=== PATIENT | male | born 1945 | race American Indian/Alaskan Native ===

== ENCOUNTER 2021-08-24 12:43 | Inpatient (IN) | payer MEDICARE ==
[2021-08-24] MEDS ORDERED: SODIUM CHLORIDE 0.9% 1000 ML 1,000 ML IV ONE (13:32)
--- NOTE | 2021-08-24 13:32 | Emergency Department Report ---
ED General Adult HPI - General Stated complaint: ABNORMAL LABS/PNEUMONIA Time Seen by Provider: 08/24/21 12:57 - History of Present Illness Initial comments: Patient was sent in from senior care by EMS for pneumonia. He had had diarrhea with leukocytosis. There was concern for possible sepsis. Patient cannot provide any cogent history. He was confused. He knew that he had renal disease. He knew that he was on dialysis, but could not tell me when he was last dialyzed. He did not know if he had been given antibiotics or not. He states that he was just told to come here. Based on review of the senior care notes, patient was diagnosed with a "mild right upper lobe pneumonia." This is based on a chest x-ray from August 23. He had outpatient labs that demonstrated a BUN of 36 and a creatinine of 6.5 with a normal potassium of 3.4. He is white count was 23.7. Again, there was no documentation that antibiotics had been administered. Patient's only complaint was of diarrhea for 5 days. He states that they were supposed to give him something for diarrhea but they had not given him anything for diarrhea. - Related Data Home Medications Medication Instructions Recorded Confirmed Last Taken Apixaban [Eliquis] 5 mg PO BID 08/24/21 08/24/21 Unknown Melatonin [Melatonin 3MG TAB] 3 mg PO QPM 08/24/21 08/24/21 Unknown Sertraline [Zoloft] 25 mg PO QDAY 08/24/21 08/24/21 Unknown Simvastatin 10 mg PO QPM 08/24/21 08/24/21 Unknown amLODIPine [Norvasc] 10 mg PO DAILY 08/24/21 08/24/21 Unknown carvediloL [Coreg] 25 mg PO BID 08/24/21 08/24/21 Unknown hydrALAZINE [Apresoline TAB] 100 mg PO TID 08/24/21 08/24/21 Unknown oxyCODONE [roxiCODONE] 5 mg PO Q8HR PRN 08/24/21 08/24/21 Unknown sevelamer HCL [Renagel] 800 mg PO TIDWM 08/24/21 08/24/21 Unknown Allergies Allergy/AdvReac Type Severity Reaction Status Date / Time Penicillins Allergy Unknown Unknown Unverified 08/24/21 15:48 ED Review of Systems ROS: Stated complaint: ABNORMAL LABS/PNEUMONIA Other details as noted in HPI Comment: All other systems reviewed and negative (It should be noted the patient is confused. Whether his review of systems is intact or not is not known.) Constitutional: denies: fever Eyes: denies: eye pain ENT: denies: throat pain Respiratory: denies: cough Cardiovascular: denies: chest pain Endocrine: denies: unexplained weight loss Gastrointestinal: denies: abdominal pain Genitourinary: denies: dysuria Musculoskeletal: denies: back pain Skin: denies: rash Neurological: denies: headache Hematological/Lymphatic: denies: easy bruising ED Past Medical Hx - Past Medical History Previous Medical History?: Yes Additional medical history: ESRD, senior care patient, diabetes, recent diagnosis of pneumonia, chronic congestive heart failure - Family History Family history: no significant - Medications Home Medications: Home Medications Medication Instructions Recorded Confirmed Last Taken Type Apixaban [Eliquis] 5 mg PO BID 08/24/21 08/24/21 Unknown History Melatonin [Melatonin 3MG TAB] 3 mg PO QPM 08/24/21 08/24/21 Unknown History Sertraline [Zoloft] 25 mg PO QDAY 08/24/21 08/24/21 Unknown History Simvastatin 10 mg PO QPM 08/24/21 08/24/21 Unknown History amLODIPine [Norvasc] 10 mg PO DAILY 08/24/21 08/24/21 Unknown History carvediloL [Coreg] 25 mg PO BID 08/24/21 08/24/21 Unknown History hydrALAZINE [Apresoline TAB] 100 mg PO TID 08/24/21 08/24/21 Unknown History oxyCODONE [roxiCODONE] 5 mg PO Q8HR PRN 08/24/21 08/24/21 Unknown History sevelamer HCL [Renagel] 800 mg PO TIDWM 08/24/21 08/24/21 Unknown History ED Physical Exam - General Limitations: Altered Mental Status ( confused), Other ( pulse ox was noted and normal. Is not hypoxic.) General appearance: alert, in no apparent distress - Head Head exam: Present: atraumatic, normocephalic, normal inspection - Eye Eye exam: Present: normal appearance, EOMI. Absent: scleral icterus - ENT ENT exam: Present: mucous membranes dry, normal external ear exam - Neck Neck exam: Present: normal inspection. Absent: meningismus - Respiratory Respiratory exam: Present: normal lung sounds bilaterally. Absent: respiratory distress - Cardiovascular Cardiovascular Exam: Present: regular rate, normal rhythm - GI/Abdominal GI/Abdominal exam: Present: soft. Absent: distended, tenderness - Extremities Exam Extremities exam: Present: normal capillary refill. Absent: pedal edema - Back Exam Back exam: Absent: CVA tenderness (R), CVA tenderness (L) - Neurological Exam Neurological exam: Present: alert, altered, reflexes normal. Absent: motor sensory deficit - Psychiatric Psychiatric exam: Present: normal affect, normal mood - Skin Skin exam: Present: warm, dry ED Course Vital Signs 08/24/21 08/24/21 08/24/21 13:06 13:16 13:25 Temperature 99 F Pulse Rate 69 Respiratory 16 11 L Rate Blood Pressure 106/49 O2 Sat by Pulse 99 95 Oximetry 08/24/21 08/24/21 08/24/21 13:30 13:46 14:00 Temperature Pulse Rate 67 75 69 Respiratory 11 L 16 13 Rate Blood Pressure 113/55 103/56 101/55 O2 Sat by Pulse 94 Oximetry 08/24/21 08/24/21 08/24/21 14:02 14:16 14:30 Temperature Pulse Rate 71 68 Respiratory 18 13 12 Rate Blood Pressure 104/58 104/52 O2 Sat by Pulse 96 Oximetry 08/24/21 08/24/21 08/24/21 14:46 15:00 15:16 Temperature Pulse Rate 69 72 68 Respiratory 12 7 L 14 Rate Blood Pressure 103/54 108/54 103/53 O2 Sat by Pulse Oximetry 08/24/21 08/24/21 08/24/21 15:30 15:46 16:00 Temperature Pulse Rate 67 67 67 Respiratory 9 L 12 12 Rate Blood Pressure 106/53 113/51 107/52 O2 Sat by Pulse Oximetry - Reevaluation(s) Reevaluation #1: 08/24/21 13:32 IV ordered. ED Medical Decision Making - Lab Data Result diagrams: 08/24/21 13:55 08/24/21 13:55 - Medical Decision Making Patient presents from a senior care with a diagnosis of pneumonia and leukocytosis. He has a features that would qualify for SIRS. He does not have hypotension. He has chronic renal failure but does not have acute kidney injury suggestive of severe sepsis or septic shock. Broad-spectrum antibiotics have been ordered. We will proceed with admission. Critical Care Time: No Critical care attestation.: If time is entered above; I have spent that time in minutes in the direct care of this critically ill patient, excluding procedure time. ED Disposition Clinical Impression: HCAP (healthcare-associated pneumonia), SIRS (systemic inflammatory response syndrome) Disposition: 09 ADMITTED INPATIENT Is pt being admited?: Yes Condition: Stable Instructions: Bacterial Pneumonia (ED)
[2021-08-24 14:51] LABS: Hematocrit 28.6 % (35.5-45.6); Hemoglobin 9.3 gm/dl (11.8-15.2); Mean Corpuscular HGB Conc 32 % (32-34); Mean Corpuscular Volume 75 fl (84-94); Platelet Count 281 K/mm3 (140-440); Red Blood Count 3.79 M/mm3 (3.65-5.03); Red Cell Distribution Width 18.8 % (13.2-15.2)
[2021-08-24 15:01] LABS: Calcium 8.6 mg/dL (8.4-10.2)
[2021-08-24] MEDS ORDERED: SODIUM CHLORIDE 0.9% 500 ML 500 ML IV ONE (16:09)
--- NOTE | 2021-08-24 16:34 | History and Physical Report ---
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 with HTN, ESRD on HD(T,R,Sa), DM, HLD, Vascular Dementia, Cerebral Atherosclerosis, CHF, currently on Therapeutic anticoagulation with Eliquis pres ents to ED for evaluation. Patient has diminished cognition with concomitant tangential thinking and is unable to provide detailed history. Patient is provided by EMS staff, ED staff, as well as the patient daughter who was made available by telephone for interview. As per daughter the patient was found to have pneumonia and was unable to undergo dialysis today. EMS was notified and the patient was transported to [facility] for further care and evaluation of the aforementioned symptoms. The patient was seen and evaluated in the emergency department. All lab and imaging studies reviewed. The patient was found to have pneumonia complicated by sepsis, end-stage renal disease in need of urgent dialysis. Patient was initiated on sepsis protocol in the emergency department. Nephrology team consulted in ED for dialysis. No further history is obtainable. Patient has diminished cognition but has a positive gag reflex and is able to protect his airway without difficulty. No prior admission for review. All medication listed at time of admission has been reconciled. Advanced care planning conducted in ED. Past History Past Medical History: diabetes, heart failure, hypertension, other (See HPI) Past Surgical History: Other (Dialysis access) Social history: single Family history: diabetes, hypertension Medications and Allergies Allergies Allergy/AdvReac Type Severity Reaction Status Date / Time Penicillins Allergy Unknown Unknown Unverified 08/24/21 15:48 Home Medications Medication Instructions Recorded Confirmed Last Taken Type Apixaban [Eliquis] 5 mg PO BID 08/24/21 08/24/21 Unknown History Melatonin [Melatonin 3MG TAB] 3 mg PO QPM 08/24/21 08/24/21 Unknown History Sertraline [Zoloft] 25 mg PO QDAY 08/24/21 08/24/21 Unknown History Simvastatin 10 mg PO QPM 08/24/21 08/24/21 Unknown History amLODIPine [Norvasc] 10 mg PO DAILY 08/24/21 08/24/21 Unknown History carvediloL [Coreg] 25 mg PO BID 08/24/21 08/24/21 Unknown History hydrALAZINE [Apresoline TAB] 100 mg PO TID 08/24/21 08/24/21 Unknown History oxyCODONE [roxiCODONE] 5 mg PO Q8HR PRN 08/24/21 08/24/21 Unknown History sevelamer HCL [Renagel] 800 mg PO TIDWM 08/24/21 08/24/21 Unknown History Active Meds: Active Medications Vancomycin HCl 1,750 mg/ (Sodium Chloride) 535 mls @ 333 mls/hr IV ONCE ONE; Protocol Stop: 08/24/21 18:45 Sodium Chloride (Nacl 0.9% 500 Ml) 500 mls @ 999 mls/hr IV ONCE ONE Stop: 08/24/21 16:39 Review of Systems ROS unobtainable: due to mental status Exam - Constitutional Vitals: Temp Pulse Resp BP Pulse Ox 99 F 67 12 107/52 96 08/24/21 13:25 08/24/21 16:00 08/24/21 16:00 08/24/21 16:00 08/24/21 14:02 General appearance: Present: mild distress - EENT Eyes: Present: PERRL ENT: clear oral mucosa, hearing decreased - Neck Neck: Present: supple, normal ROM - Respiratory Respiratory effort: normal Respiratory: bilateral: CTA - Cardiovascular Heart Sounds: Present: S1 & S2. Absent: rub, click - Extremities Extremities: pulses symmetrical, No edema Peripheral Pulses: abnormal (Capillary refill greater than 3.5 seconds) - Abdominal General gastrointestinal: Present: soft, non-tender, non-distended, normal bowel sounds Male genitourinary: Present: normal - Integumentary Integumentary: Present: clear, dry - Musculoskeletal Musculoskeletal: generalized weakness - Psychiatric Psychiatric: no appropriate mood/affect, no intact judgment & insight, no memory intact - Neurologic Neurologic: CNII-XII intact, no focal deficits, moves all extremities, no gait normal Results - Labs CBC & Chem 7: 08/24/21 13:55 08/24/21 13:55 Labs: Abnormal lab results 08/24/21 08/24/21 Range/Units 13:55 13:55 WBC 30.4 H (4.5-11.0) K/mm3 Hgb 9.3 L (11.8-15.2) gm/dl Hct 28.6 L (35.5-45.6) % MCV 75 L (84-94) fl MCH 25 L (28-32) pg RDW 18.8 H (13.2-15.2) % Sodium 130 L (137-145) mmol/L Potassium 3.2 L (3.6-5.0) mmol/L Chloride 89.9 L (98-107) mmol/L BUN 47 H (9-20) mg/dL Creatinine 8.6 H (0.8-1.3) mg/dL Glucose 202 H (75-100) mg/dL Assessment and Plan - Patient Problems (1) Sepsis Current Visit: Yes Status: Acute Plan to address problem: Sepsis protocol: CBC, CMP, chest x-ray reviewed, urinalysis, IV antibiotic therapy, monitor urine output every shift, serial lactic acid level, maintain mean arterial pressure greater than or equal to 65, blood culture. (2) HCAP (healthcare-associated pneumonia) Current Visit: No Status: Acute Plan to address problem: Pneumonia protocol: Chest x-ray, CBC, CMP, IV antibiotic therapy, supplemental oxygen, pulse oximetry, nebulizer therapy (3) End stage renal disease Current Visit: Yes Status: Acute Plan to address problem: Nephrology team consulted in ED, dialysis as per renal team. Avoid nephrotoxic agents. (4) Hypertension Current Visit: Yes Status: Acute Qualifiers: Hypertension type: primary hypertension Qualified Code(s): I10 - Essential (primary) hypertension Plan to address problem: Monitor blood pressure every shift, hold antihypertensive therapy at this time. (5) Hyperlipidemia Current Visit: Yes Status: Acute Qualifiers: Hyperlipidemia type: mixed hyperlipidemia Qualified Code(s): E78.2 - Mixed hyperlipidemia Plan to address problem: Statin therapy, supportive care, (6) DVT prophylaxis Current Visit: Yes Status: Acute Plan to address problem: SCD to bilateral lower extremities while in bed, continue therapeutic anticoagulation (7) Advance care planning Current Visit: Yes Status: Acute Plan to address problem: Disease education conducted, care plan discussed, diagnoses discussed, patient is full code, patient daughter acknowledges understanding and agreement with care plan, +30 minutes.
[2021-08-24] MEDS ORDERED: ACETAMINOPHEN 325 MG TAB PO PRN ×2 (16:35→17:23)
[2021-08-24] MEDS ORDERED: HYDROmorphone 1 MG/1 ML INJ IV PRN ×2 (16:35→17:27)
--- NOTE | 2021-08-24 16:56 | XRay Report ---
CHEST 1 VIEW 08/24/2021 4:12 PM INDICATION / CLINICAL INFORMATION: sepsis. COMPARISON: None available. FINDINGS: SUPPORT DEVICES: None. HEART / MEDIASTINUM: No significant abnormality. LUNGS / PLEURA: No significant pulmonary or pleural abnormality. No pneumothorax. ADDITIONAL FINDINGS: No significant additional findings. IMPRESSION: No acute abnormality. Signer Name: Alphonse Rodriguez MD Signed: 08/24/2021 4:52 PM Workstation Name: [id number]
[2021-08-24] MEDS ORDERED: SEVELAMER HCL 800 MG PO SCH (17:00)
[2021-08-24] MEDS ORDERED: VANCOMYCIN PHARMACY TO DOSE IV SCH (17:00)
[2021-08-24] MEDS ORDERED: SODIUM CHLORIDE 0.9% 1000 ML IV SOLN IV ONE (17:00)
[2021-08-24] MEDS ORDERED: VANCOMYCIN 1,750 MG in SODIUM CHLORIDE 0.9% 500 ML 500 ML IV ONE (17:09)
[2021-08-24] MEDS ORDERED: ALBUTEROL 2.5 MG/3 ML NEBU IH PRN (17:23)
[2021-08-24] MEDS ORDERED: oxyCODONE /ACETAMINOPHEN 5-325MG TAB PO PRN (17:23)
[2021-08-24] MEDS ORDERED: ONDANSETRON 4 MG/2 ML INJ IV PRN (17:23)
[2021-08-24] MEDS ORDERED: NON-FORMULARY EACH (Melatonin [Melatonin 3mg Tab] 3 MG Tablet) PO SCH (18:00)
[2021-08-24] MEDS ORDERED: NON-FORMULARY EACH (Simvastatin [Simvastatin] 10 MG Tablet) PO SCH (18:00)
[2021-08-24 18:56] LABS: Anisocytosis 1+; Total Cells Counted 100
[2021-08-24 18:57] LABS: Hypochromasia 1+; Large Platelets Few; Platelet Estimate Consistent w Auto
[2021-08-24] MEDS ORDERED: NON-FORMULARY EACH (Apixaban 5 MG Tablet) PO SCH (22:00)
[2021-08-24] MEDS: PRAVASTATIN 20 MG TAB PO SCH (23:37)
[2021-08-24] MEDS: APIXABAN 5 MG TAB PO SCH (23:38)
[2021-08-25] MEDS: INSULIN LISPRO 100 UNIT/ML SUB-Q SCH ×5 (01:15→22:55)
[2021-08-25] MEDS ORDERED: INSULIN LISPRO 100 UNIT/ML SUB-Q SCH (07:30)
[2021-08-25] MEDS ORDERED: SEVELAMER HCL 800 MG PO SCH (08:00)
[2021-08-25] MEDS: SEVELAMER CARBONATE 800 MG TAB PO SCH ×3 (08:01→17:22)
--- NOTE | 2021-08-25 08:35 | Event Note ---
Date: 08/25/21 Hemodialysis consent obtained from patient.
--- NOTE | 2021-08-25 08:35 | Consultation ---
History of Present Illness - Reason for Consult Consult date: 08/25/21 end stage renal disease - History of Present Illness The patient is a 75 YO male with history significant for DM, HTN, HLD, CHF, Dementia, ESRD on HD(TTS) who presented from [facility] to [facility] ED for treatment of PNA. Patient is a very poor historian and there was no family member at the bedside. CXR in the ED was negative. WBC 30. Patient was admitted for further evaluation. He missed HD yesterday. Nephrology was consulted for ESRD management. Past History Past Medical History: diabetes, dialysis, ESRD, heart failure, hypertension, other (See HPI) Past Surgical History: Other (Dialysis access) Social history: single Family history: diabetes, hypertension Medications and Allergies Allergies Allergy/AdvReac Type Severity Reaction Status Date / Time Penicillins Allergy Mild Itching Verified 08/25/21 04:36 Home Medications Medication Instructions Recorded Confirmed Last Taken Type Apixaban [Eliquis] 5 mg PO BID 08/24/21 08/25/21 08/24/21 23:55 History Melatonin [Melatonin 3MG TAB] 3 mg PO QPM 08/24/21 08/24/21 Unknown History Sertraline [Zoloft] 25 mg PO QDAY 08/24/21 08/24/21 Unknown History Simvastatin 10 mg PO QPM 08/24/21 08/25/21 08/24/21 23:55 History amLODIPine [Norvasc] 10 mg PO DAILY 08/24/21 08/24/21 Unknown History carvediloL [Coreg] 25 mg PO BID 08/24/21 08/24/21 Unknown History hydrALAZINE [Apresoline TAB] 100 mg PO TID 08/24/21 08/24/21 Unknown History oxyCODONE [roxiCODONE] 5 mg PO Q8HR PRN 08/24/21 08/24/21 Unknown History sevelamer HCL [Renagel] 800 mg PO TIDWM 08/24/21 08/24/21 Unknown History Active Meds: Active Medications Acetaminophen (Acetaminophen 325 Mg Tab) 650 mg PO Q4H PRN PRN Reason: Pain MILD(1-3)/Fever >100.5/QUINTEROS Albuterol (Albuterol 2.5 Mg/3 Ml Nebu) 2.5 mg IH Q4HRT PRN PRN Reason: Shortness Of Breath Apixaban (Apixaban 5 Mg Tab) 5 mg PO BID [facility] Last Admin: 08/24/21 23:38 Dose: 5 mg Documented by: Hydromorphone HCl (Hydromorphone 1 Mg/1 Ml Inj) 0.25 mg IV Q24H PRN PRN Reason: Pain, Moderate (4-6) Levofloxacin/Dextrose (Levaquin 500mg/100ml) 500 mg in 100 mls @ 66.667 mls/hr IV Q48H [facility]; Protocol Vancomycin HCl 1,750 mg/ (Sodium Chloride) 535 mls @ 333.333 mls/hr IV ONCE ONE Stop: 08/25/21 10:36 Insulin Human Lispro (Insulin Lispro 100 Unit/Ml) 0 unit SUB-Q ACHS [facility]; Protocol Last Admin: 08/25/21 07:59 Dose: Not Given Documented by: Ondansetron HCl (Ondansetron 4 Mg/2 Ml Inj) 4 mg IV Q8H PRN PRN Reason: Nausea And Vomiting Oxycodone/Acetaminophen (Oxycodone /Acetaminophen 5-325mg Tab) 1 tab PO Q12H PRN PRN Reason: Pain, Moderate (4-6) Pravastatin Sodium (Pravastatin 20 Mg Tab) 20 mg PO QHS [facility] Last Admin: 08/24/21 23:37 Dose: 20 mg Documented by: Sertraline HCl (Sertraline 25 Mg Tab) 25 mg PO QDAY [facility] Sevelamer Carbonate (Sevelamer Carbonate 800 Mg Tab) 800 mg PO TIDWM [facility] Last Admin: 08/25/21 08:01 Dose: 800 mg Documented by: Sodium Chloride (Sodium Chloride 0.9% 10 Ml Flush Syringe) 10 ml IV BID [facility] Last Admin: 08/25/21 07:13 Dose: Not Given Documented by: Sodium Chloride (Sodium Chloride 0.9% 10 Ml Flush Syringe) 10 ml IV PRN PRN PRN Reason: LINE FLUSH Review of Systems ROS unobtainable: due to mental status Exam - Vital Signs Vital signs: Vital Signs Resp Pulse Ox 16 99 08/24/21 13:06 08/24/21 13:06 Results - Lab Results 08/25/21 09:35 08/25/21 09:35 Most recent lab results Calcium 8.6 mg/dL (8.4-10.2) 08/24/21 13:55 Assessment and Plan 1.ESRD: Patient is on maintenance hemodialysis three times a week, TTS schedule. Last outpatient HD 08/22. Hemodialysis: 08/25. 2. FEN: Hypokalemia, monitor. Monitor lytes and volume status. 3. Suspected PNA: CXR negative. Covid-19 test ordered. On Abx. Follow cultures. 4. H/o CHF. 5. Microcytic Anemia, POA: Epogen with HD. Trend. 6. L LE wound: Wound care. Subjective: Patient was seen and examined at the bedside. Examination: General appearance: well-developed, appears stated age, no distress HEENT: atraumatic Neck: trachea midline Respiratory: diminished breath sounds Heart: S1S2, regular, no murmur Abdomen: soft, obese, bowel sounds heard, NT Integumentary: L leg dressing Neurologic: confused, non-focal Ext: R TMA Hemodialysis access: L arm AVF
[2021-08-25] MEDS ORDERED: HEPARIN 10,000 UNITS/10 ML VIAL IV PRN (08:36)
[2021-08-25] MEDS ORDERED: SODIUM CHLORIDE 0.9% 100 ML IV PRN (08:36)
[2021-08-25] MEDS ORDERED: EPOETIN ALFA-EPBX 10,000 UNIT/1 ML VIAL SUB-Q PRN (08:36)
[2021-08-25] MEDS ORDERED: VANCOMYCIN 1,750 MG in SODIUM CHLORIDE 0.9% 500 ML 500 ML IV ONE (09:00)
[2021-08-25] MEDS: APIXABAN 5 MG TAB PO SCH ×2 (09:57→21:07)
[2021-08-25] MEDS: SERTRALINE 25 MG TAB PO SCH (09:59)
[2021-08-25 10:03] LABS: Hematocrit 26.4 % (35.5-45.6); Hemoglobin 8.9 gm/dl (11.8-15.2); Mean Corpuscular HGB Conc 34 % (32-34); Mean Corpuscular Volume 75 fl (84-94); Platelet Count 269 K/mm3 (140-440); Red Blood Count 3.53 M/mm3 (3.65-5.03); Red Cell Distribution Width 18.6 % (13.2-15.2)
[2021-08-25 10:23] LABS: Calcium 8.6 mg/dL (8.4-10.2)
[2021-08-25 11:16] LABS: Band Neutrophils # (Manual) 1.4 K/mm3; Myelocytes # (Manual) 0.2 K/mm3; Platelet Estimate Consistent w Auto; Total Cells Counted 100
--- NOTE | 2021-08-25 16:25 | Progress Note ---
Assessment and Plan Assessment and Plan - Patient Problems (1) Sepsis Current Visit: Yes Status: Acute Plan to address problem: Sepsis protocol: WBC has come down from 30,000-23,000 Continue IV antibiotics Covid test pending (2) HCAP (healthcare-associated pneumonia) Current Visit: No Status: Acute Plan to address problem: Pneumonia protocol: Chest x-ray, CBC, CMP, IV antibiotic therapy, supplemental oxygen, pulse oximetry, nebulizer therapy (3) End stage renal disease Current Visit: Yes Status: Acute Plan to address problem: Nephrology consult appreciated (4) Hypertension Current Visit: Yes Status: Acute Qualifiers: Hypertension type: primary hypertension Qualified Code(s): I10 - Essential (primary) hypertension Plan to address problem: Blood pressure controlled (5) Hyperlipidemia Current Visit: Yes Status: Acute Qualifiers: Hyperlipidemia type: mixed hyperlipidemia Qualified Code(s): E78.2 - Mixed hyperlipidemia Plan to address problem: Statin therapy, supportive care, (8) PUI for Covid Current Visit: Yes Status: Acute Covid test pending (7) DVT prophylaxis Current Visit: Yes Status: Acute Plan to address problem: SCD to bilateral lower extremities while in bed, continue therapeutic anticoagulation Subjective Date of service: 08/25/21 Principal diagnosis: Sepsis Interval history: 75 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 Patient has diminished cognition with concomitant tangential thinking and is unable to provide detailed history. History is provided by EMS staff, ED staff, as well as the patient daughter who was made available by telephone for interview. As per daughter the patient was found to have pneumonia and was unable to undergo dialysis today. EMS was notified and the patient was transported to [facility] for further care and evaluation of the aforementioned symptoms. The patient was seen and evaluated in the emergency department. All lab and imaging studies reviewed. The patient was found to have pneumonia complicated by sepsis, end-stage renal disease in need of urgent dialysis. Patient was initiated on sepsis protocol in the emergency department. Nephrology team consulted in ED for dialysis. No further history is obtainable. Patient has diminished cognition but has a positive gag reflex and is able to protect his airway without difficulty. No prior admission for re view. All medication listed at time of admission has been reconciled. Advanced care planning conducted in ED. 08/25/2021 Patient is on room air Alert but not oriented Admitted for sepsis White count trending down from 30,000-23,000 Objective - Constitutional Vitals: Vital Signs - 12hr 08/25/21 08/25/21 08/25/21 04:30 10:00 10:30 Temperature 98.0 F 98.0 F Pulse Rate 69 Respiratory 16 18 Rate Blood Pressure 124/58 116/60 O2 Sat by Pulse 96 Oximetry O2 Sat by Pulse 100 Oximetry [ Anterior Bilateral] O2 Sat by Pulse 100 Oximetry [ Throughout] 08/25/21 08/25/21 08/25/21 10:45 11:00 11:15 Temperature Pulse Rate 68 68 72 Respiratory Rate Blood Pressure 109/54 104/44 106/47 O2 Sat by Pulse Oximetry O2 Sat by Pulse Oximetry [ Anterior Bilateral] O2 Sat by Pulse Oximetry [ Throughout] 08/25/21 08/25/21 08/25/21 11:30 11:45 12:00 Temperature Pulse Rate 71 69 66 Respiratory Rate Blood Pressure 108/55 120/63 121/59 O2 Sat by Pulse Oximetry O2 Sat by Pulse Oximetry [ Anterior Bilateral] O2 Sat by Pulse Oximetry [ Throughout] 08/25/21 08/25/21 08/25/21 12:15 12:30 12:45 Temperature Pulse Rate 66 66 65 Respiratory Rate Blood Pressure 121/62 129/65 128/62 O2 Sat by Pulse Oximetry O2 Sat by Pulse Oximetry [ Anterior Bilateral] O2 Sat by Pulse Oximetry [ Throughout] 08/25/21 08/25/21 08/25/21 13:00 13:15 13:30 Temperature Pulse Rate 68 68 68 Respiratory Rate Blood Pressure 128/60 117/62 118/64 O2 Sat by Pulse Oximetry O2 Sat by Pulse Oximetry [ Anterior Bilateral] O2 Sat by Pulse Oximetry [ Throughout] 08/25/21 14:00 Temperature 98.0 F Pulse Rate 68 Respiratory 18 Rate Blood Pressure 117/67 O2 Sat by Pulse Oximetry O2 Sat by Pulse 100 Oximetry [ Anterior Bilateral] O2 Sat by Pulse 100 Oximetry [ Throughout] General appearance: Present: no acute distress, well-nourished - EENT Eyes: PERRL, EOM intact ENT: hearing intact, clear oral mucosa Ears: bilateral: normal - Neck Neck: supple, normal ROM - Respiratory Respiratory effort: normal Respiratory: bilateral: CTA - Breasts Breasts: normal - Cardiovascular Heart rate: 78 Rhythm: regular Heart Sounds: Present: S1 & S2. Absent: gallop, rub Extremities: pulses intact, No edema, normal color, Full ROM - Gastrointestinal General gastrointestinal: Present: soft, non-tender, non-distended, normal bowel sounds - Genitourinary Male genitourinary: normal - Integumentary Integumentary: clear, warm, dry - Musculoskeletal Musculoskeletal: 1, strength equal bilaterally - Neurologic Neurologic: moves all extremities - Psychiatric Psychiatric: memory intact, appropriate mood/affect, intact judgment & insight - Labs CBC & Chem 7: 08/25/21 09:35 08/25/21 21:00 Labs: Abnormal lab results 08/24/21 08/24/21 08/25/21 Range/Units 13:55 23:16 07:49 WBC (4.5-11.0) K/mm3 RBC (3.65-5.03) M/mm3 Hgb (11.8-15.2) gm/dl Hct (35.5-45.6) % MCV (84-94) fl MCH (28-32) pg RDW (13.2-15.2) % Seg Neuts % (Manual) 94.0 H (40.0-70.0) % Lymphocytes % (Manual) 1.0 L (13.4-35.0) % Seg Neutrophils # Man 28.6 H (1.8-7.7) K/mm3 Lymphocytes # (Manual) 0.3 L (1.2-5.4) K/mm3 Monocytes # (Manual) 1.2 H (0.0-0.8) K/mm3 Sodium (137-145) mmol/L Potassium (3.6-5.0) mmol/L Chloride (98-107) mmol/L BUN (9-20) mg/dL Creatinine (0.8-1.3) mg/dL Glucose (75-100) mg/dL POC Glucose 247 H 127 H (70-105) mg/dL 08/25/21 08/25/21 08/25/21 Range/Units 09:35 09:35 15:57 WBC 23.9 H (4.5-11.0) K/mm3 RBC 3.53 L (3.65-5.03) M/mm3 Hgb 8.9 L (11.8-15.2) gm/dl Hct 26.4 L (35.5-45.6) % MCV 75 L (84-94) fl MCH 25 L (28-32) pg RDW 18.6 H (13.2-15.2) % Seg Neuts % (Manual) 88.0 H (40.0-70.0) % Lymphocytes % (Manual) 3.0 L (13.4-35.0) % Seg Neutrophils # Man 21.0 H (1.8-7.7) K/mm3 Lymphocytes # (Manual) 0.7 L (1.2-5.4) K/mm3 Monocytes # (Manual) (0.0-0.8) K/mm3 Sodium 133 L (137-145) mmol/L Potassium 3.1 L (3.6-5.0) mmol/L Chloride 92.3 L (98-107) mmol/L BUN 57 H (9-20) mg/dL Creatinine 9.8 H (0.8-1.3) mg/dL Glucose 127 H (75-100) mg/dL POC Glucose 213 H (70-105) mg/dL
[2021-08-25] MEDS: PRAVASTATIN 20 MG TAB PO SCH (21:07)
[2021-08-25 23:13] LABS: Hepatitis C Virus Antibody Non-Reactive (NonReactive)
[2021-08-26 00:02] LABS: Hepatitis B Surface Antigen Nonreactive (Negative)
[2021-08-26 02:24] LABS: C-Reactive Protein 11.6 mg/dL (0.00-1.30)
[2021-08-26] MEDS: INSULIN LISPRO 100 UNIT/ML SUB-Q SCH ×4 (07:19→22:00)
[2021-08-26] MEDS ORDERED: POTASSIUM CHLORIDE ER 20 MEQ TAB PO ONE (07:28)
[2021-08-26] MEDS: SEVELAMER CARBONATE 800 MG TAB PO SCH ×3 (08:28→18:19)
[2021-08-26] MEDS: APIXABAN 5 MG TAB PO SCH ×2 (11:24→22:00)
[2021-08-26] MEDS: SERTRALINE 25 MG TAB PO SCH (11:24)
[2021-08-26] MEDS ORDERED: POTASSIUM CHLORIDE ER 20 MEQ TAB PO SCH (12:00)
--- NOTE | 2021-08-26 14:06 | Progress Note ---
Assessment and Plan 1.ESRD: Patient is on maintenance hemodialysis three times a week, TTS schedule. Last outpatient HD 08/22. Hemodialysis: 08/25. HD today. 2. FEN: Hypokalemia, monitor. Monitor lytes and volume status. 3. Suspected PNA: CXR negative. Covid-19 test negative. On Abx. Follow cultures. 4. H/o CHF. 5. Microcytic Anemia, POA: Epogen with HD. Trend. 6. L LE wound: Wound care. Subjective: Patient was seen and examined at the bedside. Examination: General appearance: well-developed, appears stated age, no distress HEENT: atraumatic Neck: trachea midline Respiratory: diminished breath sounds Heart: S1S2, regular, no murmur Abdomen: soft, obese, bowel sounds heard, NT Integumentary: L leg dressing Neurologic: confused, non-focal Ext: R TMA Hemodialysis access: L arm AVF Subjective Date of service: 08/26/21 Principal diagnosis: Sepsis Objective - Vital Signs Vital signs: Vital Signs - 12hr 08/26/21 08/26/21 10:00 10:35 O2 Sat by Pulse 98 100 Oximetry - Lab 08/25/21 09:35 08/25/21 21:00 Most recent lab results Calcium 8.6 mg/dL (8.4-10.2) 08/25/21 09:35 Medications & Allergies - Medications Allergies/Adverse Reactions: Allergies Penicillins Allergy (Mild, Verified 08/25/21 04:36) Itching Home Medications: Home Medications Medication Instructions Recorded Confirmed Last Taken Type Apixaban [Eliquis] 5 mg PO BID 08/24/21 08/25/21 08/24/21 23:55 History Melatonin [Melatonin 3MG TAB] 3 mg PO QPM 08/24/21 08/24/21 Unknown History Sertraline [Zoloft] 25 mg PO QDAY 08/24/21 08/24/21 Unknown History Simvastatin 10 mg PO QPM 08/24/21 08/25/21 08/24/21 23:55 History amLODIPine [Norvasc] 10 mg PO DAILY 08/24/21 08/24/21 Unknown History carvediloL [Coreg] 25 mg PO BID 08/24/21 08/24/21 Unknown History hydrALAZINE [Apresoline TAB] 100 mg PO TID 08/24/21 08/24/21 Unknown History oxyCODONE [roxiCODONE] 5 mg PO Q8HR PRN 08/24/21 08/24/21 Unknown History sevelamer HCL [Renagel] 800 mg PO TIDWM 08/24/21 08/24/21 Unknown History Active Medications: Generic Name Dose Route Start Last Admin Trade Name Freq PRN Reason Stop Dose Admin Acetaminophen 650 mg 08/24/21 17:23 Acetaminophen 325 Mg Tab PO Q4H PRN Pain MILD(1-3)/Fever >100.5/QUINTEROS Albuterol 2.5 mg 08/24/21 17:23 Albuterol 2.5 Mg/3 Ml Nebu IH Q4HRT PRN Shortness Of Breath Apixaban 5 mg 08/24/21 22:00 08/26/21 11:24 Apixaban 5 Mg Tab PO 5 mg BID [facility] Administration Heparin Sodium (Porcine) 3,000 unit 08/25/21 08:36 Heparin 10,000 Units/10 Ml Vial IV GABRIELA PRN hemodialysis Hydromorphone HCl 0.25 mg 08/24/21 17:27 Hydromorphone 1 Mg/1 Ml Inj IV Q24H PRN Pain, Moderate (4-6) Sodium Chloride 100 mls @ 999 mls/hr 08/25/21 08:36 Nacl 0.9% IV GABRIELA PRN Hypotension Levofloxacin/Dextrose 500 mg in 100 mls @ 100 mls/hr 08/27/21 17:00 Levaquin 500mg/100ml IV Q48H [facility] Protocol Insulin Human Lispro 0 unit 08/25/21 01:15 08/26/21 12:31 Insulin Lispro 100 Unit/Ml SUB-Q Not Given ACHS [facility] Protocol Ondansetron HCl 4 mg 08/24/21 17:23 Ondansetron 4 Mg/2 Ml Inj IV Q8H PRN Nausea And Vomiting Oxycodone/Acetaminophen 1 tab 08/24/21 17:23 Oxycodone /Acetaminophen 5-325mg Tab PO Q12H PRN Pain, Moderate (4-6) Potassium Chloride 20 meq 08/26/21 12:00 08/26/21 12:24 Potassium Chloride Er 20 Meq Tab PO 08/26/21 16:00 20 meq ONCE@1200 [facility] Administration Pravastatin Sodium 20 mg 08/24/21 22:00 08/25/21 21:07 Pravastatin 20 Mg Tab PO 20 mg QHS [facility] Administration Sertraline HCl 25 mg 08/25/21 10:00 08/26/21 11:24 Sertraline 25 Mg Tab PO 25 mg QDAY [facility] Administration Sevelamer Carbonate 800 mg 08/25/21 08:00 08/26/21 12:28 Sevelamer Carbonate 800 Mg Tab PO 800 mg TIDWM [facility] Administration Sodium Chloride 10 ml 08/24/21 22:00 08/26/21 12:29 Sodium Chloride 0.9% 10 Ml Flush Syringe IV 10 ml BID [facility]OM[facility] Administration Sodium Chloride 10 ml 08/24/21 17:23 Sodium Chloride 0.9% 10 Ml Flush Syringe IV PRN PRN LINE FLUSH
--- NOTE | 2021-08-26 14:54 | Progress Note ---
Assessment and Plan (1) Sepsis Current Visit: Yes Status: Acute Plan to address problem: Sepsis protocol: WBC has come down from 30,000-23,000 Continue IV antibiotics Covid test pending (2) HCAP (healthcare-associated pneumonia) Current Visit: No Status: Acute Plan to address problem: Pneumonia protocol: Chest x-ray, CBC, CMP, IV antibiotic therapy, supplemental oxygen, pulse oximetry, nebulizer therapy (3) End stage renal disease Current Visit: Yes Status: Acute Plan to address problem: Nephrology consult appreciated (4) Hypertension Current Visit: Yes Status: Acute Qualifiers: Hypertension type: primary hypertension Qualified Code(s): I10 - Essential (primary) hypertension Plan to address problem: Blood pressure controlled (5) Hyperlipidemia Current Visit: Yes Status: Acute Qualifiers: Hyperlipidemia type: mixed hyperlipidemia Qualified Code(s): E78.2 - Mixed hyperlipidemia Plan to address problem: Statin therapy, supportive care, (8) PUI for Covid Current Visit: Yes Status: Acute Covid test pending (7) DVT prophylaxis Current Visit: Yes Status: Acute Plan to address problem: SCD to bilateral lower extremities while in bed, continue therapeutic anticoagul ation Brief History 75 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 with HTN, ESRD on HD(T,R,Sa), DM, HLD, Vascular Dementia, Cerebral Atherosclerosis, CHF, currently on Therapeutic anticoagulation with Eliquis presents to ED for evaluation. Patient has diminished cognition with concomitant tangential thinking and is unable to provide detailed history. History is provided by EMS staff, ED staff, as well as the patient daughter who was made available by telephone for interview. As per daughter the patient was found to have pneumonia and was unable to undergo dialysis today. EMS was notified and the patient was transported to [facility] for further care and evaluation of the aforementioned symptoms. The patient was seen and evaluated in the emergency department. All lab and imaging studies reviewed. The patient was found to have pneumonia complicated by sepsis, end-stage renal disease in need of urgent dialysis. Patient was initiated on sepsis protocol in the emergency department. Nephrology team consulted in ED for dialysis. No further history is obtainable. Patient has diminished cognition but has a positive gag reflex and is able to protect his airway without difficulty. No prior admission for review. All medication listed at time of admission has been reconciled. Advanced care planning conducted in ED. 08/25/2021 Patient is on room air Alert but not oriented Admitted for sepsis White count trending down from 30,000-23,000 08/26/21: Patient on room air, getting hemodialysis, white count persistently elevated. Continue empiric antibiotics for now. Wait for final culture results. Subjective Date of service: 08/26/21 Principal diagnosis: Sepsis Objective - Constitutional Vitals: Vital Signs - 12hr 08/26/21 08/26/21 10:00 10:35 O2 Sat by Pulse 98 100 Oximetry - Labs CBC & Chem 7: 08/27/21 08:28 08/27/21 08:28 Labs: Abnormal lab results 08/25/21 08/25/21 08/25/21 Range/Units 15:57 21:00 21:00 D-Dimer 1710.65 H (0-234) ng/mlDDU Glucose 267 H (75-100) mg/dL POC Glucose 213 H (70-105) mg/dL Ferritin (30.0-300.0) ng/mL Lactate Dehydrogenase 261 H (91-180) units/L C-Reactive Protein 11.60 H (0.00-1.30) mg/dL 08/25/21 08/25/21 08/26/21 Range/Units 21:00 21:56 06:01 D-Dimer (0-234) ng/mlDDU Glucose (75-100) mg/dL POC Glucose 208 H 121 H (70-105) mg/dL Ferritin 1959.0 H (30.0-300.0) ng/mL Lactate Dehydrogenase (91-180) units/L C-Reactive Protein (0.00-1.30) mg/dL
[2021-08-26] MEDS: PRAVASTATIN 20 MG TAB PO SCH (22:00)
[2021-08-27 08:48] LABS: Hematocrit 28.4 % (35.5-45.6); Hemoglobin 9.1 gm/dl (11.8-15.2); Mean Corpuscular HGB Conc 32 % (32-34); Mean Corpuscular Volume 77 fl (84-94); Platelet Count 278 K/mm3 (140-440); Red Blood Count 3.68 M/mm3 (3.65-5.03); Red Cell Distribution Width 19.1 % (13.2-15.2)
[2021-08-27 08:50] LABS: Hematocrit 28.4 % (35.5-45.6); Hemoglobin 9.1 gm/dl (11.8-15.2); Mean Corpuscular HGB Conc 32 % (32-34); Mean Corpuscular Volume 77 fl (84-94); Platelet Count 277 K/mm3 (140-440); Red Cell Distribution Width 18.4 % (13.2-15.2)
[2021-08-27 09:06] LABS: Calcium 8.3 mg/dL (8.4-10.2)
[2021-08-27 09:34] LABS: Total Cells Counted 100
[2021-08-27 09:35] LABS: Anisocytosis 1+; Hypochromasia 1+; Platelet Estimate Consistent w Auto
[2021-08-27] MEDS: SEVELAMER CARBONATE 800 MG TAB PO SCH ×3 (09:54→17:40)
[2021-08-27] MEDS: APIXABAN 5 MG TAB PO SCH ×2 (09:55→21:30)
[2021-08-27] MEDS: INSULIN LISPRO 100 UNIT/ML SUB-Q SCH ×4 (09:55→21:37)
[2021-08-27] MEDS: SERTRALINE 25 MG TAB PO SCH (09:59)
[2021-08-27] MEDS ORDERED: POTASSIUM CHLORIDE ER 20 MEQ TAB PO NR (10:00)
--- NOTE | 2021-08-27 11:21 | Progress Note ---
Assessment and Plan (1) Sepsis Current Visit: Yes Status: Acute Plan to address problem: Sepsis protocol: WBC has come down from 30,000-23,000 Continue IV antibiotics Covid test pending (2) HCAP (healthcare-associated pneumonia) Current Visit: No Status: Acute Plan to address problem: Pneumonia protocol: Chest x-ray, CBC, CMP, IV antibiotic therapy, supplemental oxygen, pulse oximetry, nebulizer therapy (3) End stage renal disease Current Visit: Yes Status: Acute Plan to address problem: Nephrology consult appreciated (4) Hypertension Current Visit: Yes Status: Acute Qualifiers: Hypertension type: primary hypertension Qualified Code(s): I10 - Essential (primary) hypertension Plan to address problem: Blood pressure controlled (5) Hyperlipidemia Current Visit: Yes Status: Acute Qualifiers: Hyperlipidemia type: mixed hyperlipidemia Qualified Code(s): E78.2 - Mixed hyperlipidemia Plan to address problem: Statin therapy, supportive care, (8) PUI for Covid Current Visit: Yes Status: Acute Covid test pending (7) DVT prophylaxis Current Visit: Yes Status: Acute Plan to address problem: SCD to bilateral lower extremities while in bed, continue therapeutic anticoagul ation Brief History 75 YO Male 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 Patient has diminished cognition with concomitant tangential thinking and is unable to provide detailed history. History is provided by EMS staff, ED staff, as well as the patient daughter who was made available by telephone for interview. As per daughter the patient was found to have pneumonia and was unable to undergo dialysis today. EMS was notified and the patient was transported to [facility] for further care and evaluation of the aforementioned symptoms. The patient was seen and evaluated in the emergency department. All lab and imaging studies reviewed. The patient was found to have pneumonia complicated by sepsis, end-stage renal disease in need of urgent dialysis. Patient was initiated on sepsis protocol in the emergency department. Nephrology team consulted in ED for dialysis. No further history is obtainable. Patient has diminished cognition but has a positive gag reflex and is able to protect his airway without difficulty. No prior admission for review. All medication listed at time of admission has been reconciled. Advanced care planning conducted in ED. 08/25/2021 Patient is on room air Alert but not oriented Admitted for sepsis White count trending down from 30,000-23,000 08/26/21: Patient on room air, getting hemodialysis, white count persistently elevated. Continue empiric antibiotics for now. Wait for final culture results. 08/27/21: Continues to have elevated white count, continue empiric antibiotics, cultures so far negative. Will consult ID Subjective Date of service: 08/27/21 Principal diagnosis: Sepsis Objective - Constitutional Vitals: Vital Signs - 12hr 08/27/21 05:39 Temperature 98.2 F Pulse Rate 75 Respiratory 18 Rate Blood Pressure 132/58 O2 Sat by Pulse 98 Oximetry - Labs CBC & Chem 7: 08/27/21 08:28 08/27/21 08:28 Labs: Abnormal lab results 08/27/21 08/27/21 08/27/21 Range/Units 07:39 08:28 08:28 WBC 23.4 H (4.5-11.0) K/mm3 Hgb 9.1 L (11.8-15.2) gm/dl Hct 28.4 L (35.5-45.6) % MCV 77 L (84-94) fl MCH 25 L (28-32) pg RDW 18.4 H (13.2-15.2) % Seg Neuts % (Manual) 94.0 H (40.0-70.0) % Lymphocytes % (Manual) 2.0 L (13.4-35.0) % Nucleated RBC % 1.0 H (0.0-0.9) % Seg Neutrophils # Man 22.0 H (1.8-7.7) K/mm3 Lymphocytes # (Manual) 0.5 L (1.2-5.4) K/mm3 Basophils # (Manual) 0.2 H (0.0-0.1) K/mm3 Sodium 135 L (137-145) mmol/L Potassium 3.4 L (3.6-5.0) mmol/L Chloride 96.6 L (98-107) mmol/L BUN 35 H (9-20) mg/dL Creatinine 7.4 H (0.8-1.3) mg/dL Glucose 181 H (75-100) mg/dL POC Glucose 178 H (70-105) mg/dL Calcium 8.3 L (8.4-10.2) mg/dL 08/27/21 Range/Units 08:28 WBC 23.6 H (4.5-11.0) K/mm3 Hgb 9.1 L (11.8-15.2) gm/dl Hct 28.4 L (35.5-45.6) % MCV 77 L (84-94) fl MCH 25 L (28-32) pg RDW 19.1 H (13.2-15.2) % Seg Neuts % (Manual) (40.0-70.0) % Lymphocytes % (Manual) (13.4-35.0) % Nucleated RBC % (0.0-0.9) % Seg Neutrophils # Man (1.8-7.7) K/mm3 Lymphocytes # (Manual) (1.2-5.4) K/mm3 Basophils # (Manual) (0.0-0.1) K/mm3 Sodium (137-145) mmol/L Potassium (3.6-5.0) mmol/L Chloride (98-107) mmol/L BUN (9-20) mg/dL Creatinine (0.8-1.3) mg/dL Glucose (75-100) mg/dL POC Glucose (70-105) mg/dL Calcium (8.4-10.2) mg/dL
--- NOTE | 2021-08-27 15:24 | Progress Note ---
Assessment and Plan 1.ESRD: Patient is on maintenance hemodialysis three times a week, TTS schedule. Last outpatient HD 08/22. Hemodialysis: 08/25, 08/26. 2. FEN: Hypokalemia, replete K, monitor. Monitor lytes and volume status. 3. Suspected PNA: CXR negative. Covid-19 test negative. On Abx. Follow cultures. 4. H/o CHF. 5. Microcytic Anemia, POA: Epogen with HD. Trend. 6. L LE wound: Wound care. Subjective: Patient was seen and examined at the bedside. Examination: General appearance: well-developed, appears stated age, no distress HEENT: atraumatic Neck: trachea midline Respiratory: diminished breath sounds Heart: S1S2, regular, no murmur Abdomen: soft, obese, bowel sounds heard, NT Integumentary: L leg dressing Neurologic: confused, non-focal Ext: R TMA Hemodialysis access: L arm AVF Subjective Date of service: 08/27/21 Principal diagnosis: Sepsis Objective - Vital Signs Vital signs: Vital Signs - 12hr 08/27/21 08/27/21 05:39 11:37 Temperature 98.2 F 98.3 F Pulse Rate 75 75 Respiratory 18 18 Rate Blood Pressure 132/58 142/74 O2 Sat by Pulse 98 99 Oximetry - Lab 08/27/21 08:28 08/27/21 08:28 Most recent lab results Calcium 8.3 mg/dL (8.4-10.2) L 08/27/21 08:28 Medications & Allergies - Medications Allergies/Adverse Reactions: Allergies Penicillins Allergy (Mild, Verified 08/25/21 04:36) Itching Home Medications: Home Medications Medication Instructions Recorded Confirmed Last Taken Type Apixaban [Eliquis] 5 mg PO BID 08/24/21 08/25/21 08/24/21 23:55 History Melatonin [Melatonin 3MG TAB] 3 mg PO QPM 08/24/21 08/24/21 Unknown History Sertraline [Zoloft] 25 mg PO QDAY 08/24/21 08/24/21 Unknown History Simvastatin 10 mg PO QPM 08/24/21 08/25/21 08/24/21 23:55 History amLODIPine [Norvasc] 10 mg PO DAILY 08/24/21 08/24/21 Unknown History carvediloL [Coreg] 25 mg PO BID 08/24/21 08/24/21 Unknown History hydrALAZINE [Apresoline TAB] 100 mg PO TID 08/24/21 08/24/21 Unknown History oxyCODONE [roxiCODONE] 5 mg PO Q8HR PRN 08/24/21 08/24/21 Unknown History sevelamer HCL [Renagel] 800 mg PO TIDWM 08/24/21 08/24/21 Unknown History Active Medications: Generic Name Dose Route Start Last Admin Trade Name Freq PRN Reason Stop Dose Admin Acetaminophen 650 mg 08/24/21 17:23 Acetaminophen 325 Mg Tab PO Q4H PRN Pain MILD(1-3)/Fever >100.5/QUINTEROS Albuterol 2.5 mg 08/24/21 17:23 Albuterol 2.5 Mg/3 Ml Nebu IH Q4HRT PRN Shortness Of Breath Apixaban 5 mg 08/24/21 22:00 08/27/21 09:55 Apixaban 5 Mg Tab PO 5 mg BID [facility] Administration Heparin Sodium (Porcine) 3,000 unit 08/25/21 08:36 Heparin 10,000 Units/10 Ml Vial IV GABRIELA PRN hemodialysis Hydromorphone HCl 0.25 mg 08/24/21 17:27 Hydromorphone 1 Mg/1 Ml Inj IV Q24H PRN Pain, Moderate (4-6) Sodium Chloride 100 mls @ 999 mls/hr 08/25/21 08:36 Nacl 0.9% IV GABRIELA PRN Hypotension Levofloxacin/Dextrose 500 mg in 100 mls @ 100 mls/hr 08/27/21 17:00 Levaquin 500mg/100ml IV Q48H [facility] Protocol Insulin Human Lispro 0 unit 08/25/21 01:15 08/27/21 13:35 Insulin Lispro 100 Unit/Ml SUB-Q 4 unit ACHS [facility] Administration Protocol Ondansetron HCl 4 mg 08/24/21 17:23 Ondansetron 4 Mg/2 Ml Inj IV Q8H PRN Nausea And Vomiting Oxycodone/Acetaminophen 1 tab 08/24/21 17:23 Oxycodone /Acetaminophen 5-325mg Tab PO Q12H PRN Pain, Moderate (4-6) Pravastatin Sodium 20 mg 08/24/21 22:00 08/26/21 22:00 Pravastatin 20 Mg Tab PO 20 mg QHS [facility] Administration Sertraline HCl 25 mg 08/25/21 10:00 08/27/21 09:59 Sertraline 25 Mg Tab PO 25 mg QDAY [facility] Administration Sevelamer Carbonate 800 mg 08/25/21 08:00 08/27/21 13:35 Sevelamer Carbonate 800 Mg Tab PO 800 mg TIDWM [facility] Administration Sodium Chloride 10 ml 08/24/21 22:00 08/27/21 13:36 Sodium Chloride 0.9% 10 Ml Flush Syringe IV 10 ml BID [facility] Administration Sodium Chloride 10 ml 08/24/21 17:23 Sodium Chloride 0.9% 10 Ml Flush Syringe IV PRN PRN LINE FLUSH
[2021-08-27] MEDS: PRAVASTATIN 20 MG TAB PO SCH (21:30)
[2021-08-28] MEDS: INSULIN LISPRO 100 UNIT/ML SUB-Q SCH ×3 (07:46→16:33)
[2021-08-28] MEDS: SEVELAMER CARBONATE 800 MG TAB PO SCH ×3 (08:02→17:10)
[2021-08-28] MEDS: SERTRALINE 25 MG TAB PO SCH (09:02)
[2021-08-28] MEDS: APIXABAN 5 MG TAB PO SCH (09:02)
--- NOTE | 2021-08-28 12:14 | Consultation ---
History of Present Illness - Reason for Consult Consult date: 08/28/21 - History of Present Illness 75-year-old man past medical history ESRD on HD, diabetes, vascular dementia, CHF who is a resident of nursing facility presented to the hospital due to worsening mental status. Reportedly he was found to have pneumonia as an outpatient, was unable to undergo dialysis on the day of admission. He was transported to the hospital for evaluation. Afebrile, white count 23.6. Covid negative. Procalcitonin elevated in the setting of ESRD. Currently on Levaquin. Blood cultures no growth so far. Imaging personally reviewed: Chest x-ray: No acute abnormality Past History Past Medical History: diabetes, dialysis, ESRD, heart failure, hypertension, other (See HPI) Past Surgical History: Other (Dialysis access) Social history: single Family history: diabetes, hypertension Medications and Allergies Allergies Allergy/AdvReac Type Severity Reaction Status Date / Time Penicillins Allergy Mild Itching Verified 08/25/21 04:36 Home Medications Medication Instructions Recorded Confirmed Last Taken Type Apixaban [Eliquis] 5 mg PO BID 08/24/21 08/25/21 08/24/21 23:55 History Melatonin [Melatonin 3MG TAB] 3 mg PO QPM 08/24/21 08/24/21 Unknown History Sertraline [Zoloft] 25 mg PO QDAY 08/24/21 08/24/21 Unknown History Simvastatin 10 mg PO QPM 08/24/21 08/25/21 08/24/21 23:55 History amLODIPine [Norvasc] 10 mg PO DAILY 08/24/21 08/24/21 Unknown History carvediloL [Coreg] 25 mg PO BID 08/24/21 08/24/21 Unknown History hydrALAZINE [Apresoline TAB] 100 mg PO TID 08/24/21 08/24/21 Unknown History oxyCODONE [roxiCODONE] 5 mg PO Q8HR PRN 08/24/21 08/24/21 Unknown History sevelamer HCL [Renagel] 800 mg PO TIDWM 08/24/21 08/24/21 Unknown History Active Meds: Active Medications Acetaminophen (Acetaminophen 325 Mg Tab) 650 mg PO Q4H PRN PRN Reason: Pain MILD(1-3)/Fever >100.5/QUINTEROS Albuterol (Albuterol 2.5 Mg/3 Ml Nebu) 2.5 mg IH Q4HRT PRN PRN Reason: Shortness Of Breath Apixaban (Apixaban 5 Mg Tab) 5 mg PO BID [facility] Last Admin: 08/28/21 09:02 Dose: 5 mg Documented by: Heparin Sodium (Porcine) (Heparin 10,000 Units/10 Ml Vial) 3,000 unit IV GABRIELA PRN PRN Reason: hemodialysis Hydromorphone HCl (Hydromorphone 1 Mg/1 Ml Inj) 0.25 mg IV Q24H PRN PRN Reason: Pain, Moderate (4-6) Sodium Chloride (Nacl 0.9%) 100 mls @ 999 mls/hr IV GABRIELA PRN PRN Reason: Hypotension Levofloxacin/Dextrose (Levaquin 500mg/100ml) 500 mg in 100 mls @ 100 mls/hr IV Q48H [facility]; Protocol Stop: 08/31/21 23:59 Last Admin: 08/27/21 21:05 Dose: 100 mls/hr Documented by: Insulin Human Lispro (Insulin Lispro 100 Unit/Ml) 0 unit SUB-Q ACHS [facility]; Protocol Last Admin: 08/28/21 07:46 Dose: Not Given Documented by: Ondansetron HCl (Ondansetron 4 Mg/2 Ml Inj) 4 mg IV Q8H PRN PRN Reason: Nausea And Vomiting Oxycodone/Acetaminophen (Oxycodone /Acetaminophen 5-325mg Tab) 1 tab PO Q12H PRN PRN Reason: Pain, Moderate (4-6) Pravastatin Sodium (Pravastatin 20 Mg Tab) 20 mg PO QHS [facility] Last Admin: 08/27/21 21:30 Dose: 20 mg Documented by: Sertraline HCl (Sertraline 25 Mg Tab) 25 mg PO QDAY [facility] Last Admin: 08/28/21 09:02 Dose: 25 mg Documented by: Sevelamer Carbonate (Sevelamer Carbonate 800 Mg Tab) 800 mg PO TIDWM [facility] Last Admin: 08/28/21 08:02 Dose: 800 mg Documented by: Sodium Chloride (Sodium Chloride 0.9% 10 Ml Flush Syringe) 10 ml IV BID [facility] Last Admin: 08/28/21 09:02 Dose: 10 ml Documented by: Sodium Chloride (Sodium Chloride 0.9% 10 Ml Flush Syringe) 10 ml IV PRN PRN PRN Reason: LINE FLUSH Review of Systems ROS unobtainable: due to mental status Physical Examination - Physical Exam Narrative exam: Physical Exam: Constitutional: Awake, confused Head, Ears, Nose: Normocephalic, atraumatic. External ears, nose normal Eyes: Conjunctivae/corneas clear. No icterus. No ptosis. Neck: Supple, no meningeal signs Oral: dentition fair, no thrush Cardiovascular: S1, S2 normal. Respiratory: Good air entry, clear to auscultation bilaterally GI: Soft, non-tender; bowel sounds normal. No peritoneal signs. Musculoskeletal: No pedal edema, no cyanosis. Skin: No rash or abscess Hem/Lymphatic: No palpable cervical or supraclavicular nodes. No lymphangitis Psych: No agitation Neurological: Confused - Constitutional Vitals: Vital Signs Temp Pulse Resp BP Pulse Ox 98.0 F 74 22 150/76 100 08/28/21 11:24 08/28/21 11:24 08/28/21 11:24 08/28/21 11:24 08/28/21 11:24 Temperature -Last 24 Hours Temperature 98.0 F Temperature 97.9 F Temperature 97.8 F Temperature 98.4 F Results - Labs CBC & Chem 7: 08/27/21 08:28 08/27/21 08:28 Labs: Abnormal lab results 08/27/21 08/27/21 08/27/21 Range/Units 12:39 15:53 21:22 POC Glucose 254 H 135 H 216 H (70-105) mg/dL 08/28/21 Range/Units 11:23 POC Glucose 186 H (70-105) mg/dL Assessment and Plan Cultures: Blood culture 08/24/2021 no growth so far COVID negative. A/P: 75-year-old man past medical history ESRD on HD, diabetes, vascular dementia, CHF admitted with decreased mentation #Leukocytosis: elevated on admission to 30, somewhat improved to 23 now. Unclear source, initially admitted for pneumonia, however CXR has been normal and remains on room air. Procalcitonin elevated, however as it is renally cleared can be falsely elevated in kidney failure. #ESRD on HD: renally dose medications. Blood cultures remain no growth #Acute encephalopathy: had missed dialysis, possible infectious cause? #Vascular dementia Recs: -Changed Levaquin to cefepime. -Follow up blood cultures -Consider CT abdo/pelvis to investigate cause of leukocytosis. -Trend white count. Thank you for the consult, we will continue to follow. Dina Duran MD [facility] O: [phone] F: [phone]
--- NOTE | 2021-08-28 13:01 | Progress Note ---
Assessment and Plan (1) Sepsis Current Visit: Yes Status: Acute Plan to address problem: Sepsis protocol: WBC has come down from 30,000-23,000 Continue IV antibiotics Covid test pending (2) HCAP (healthcare-associated pneumonia) Current Visit: No Status: Acute Plan to address problem: Pneumonia protocol: Chest x-ray, CBC, CMP, IV antibiotic therapy, supplemental oxygen, pulse oximetry, nebulizer therapy (3) End stage renal disease Current Visit: Yes Status: Acute Plan to address problem: Nephrology consult appreciated (4) Hypertension Current Visit: Yes Status: Acute Qualifiers: Hypertension type: primary hypertension Qualified Code(s): I10 - Essential (primary) hypertension Plan to address problem: Blood pressure controlled (5) Hyperlipidemia Current Visit: Yes Status: Acute Qualifiers: Hyperlipidemia type: mixed hyperlipidemia Qualified Code(s): E78.2 - Mixed hyperlipidemia Plan to address problem: Statin therapy, supportive care, (8) PUI for Covid Current Visit: Yes Status: Acute Covid test pending (7) DVT prophylaxis Current Visit: Yes Status: Acute Plan to address problem: SCD to bilateral lower extremities while in bed, continue therapeutic anticoagul ation Brief History 75 YO Male [facility] Resident at [facility] with HTN, ESRD on HD(T,R,Sa), DM, HLD, Vascular Dementia, Cerebral Atherosclerosis, CHF, currently on Therapeutic anticoagulation with Eliquis presents to ED for evaluation. Patient has diminished cognition with concomitant tangential thinking and is unable to provide detailed history. History is provided by EMS staff, ED staff, as well as the patient daughter who was made available by telephone for interview. As per daughter the patient was found to have pneumonia and was unable to undergo dialysis today. EMS was notified and the patient was transported to [facility] for further care and evaluation of the aforementioned symptoms. The patient was seen and evaluated in the emergency department. All lab and imaging studies reviewed. The patient was found to have pneumonia complicated by sepsis, end-stage renal disease in need of urgent dialysis. Patient was initiated on sepsis protocol in the emergency department. Nephrology team consulted in ED for dialysis. No further history is obtainable. Patient has diminished cognition but has a positive gag reflex and is able to protect his airway without difficulty. No prior admission for review. All medication listed at time of admission has been reconciled. Advanced care planning conducted in ED. 08/25/2021 Patient is on room air Alert but not oriented Admitted for sepsis White count trending down from 30,000-23,000 08/26/21: Patient on room air, getting hemodialysis, white count persistently elevated. Continue empiric antibiotics for now. Wait for final culture results. 08/27/21: Continues to have elevated white count, continue empiric antibiotics, cultures so far negative. Will consult ID 08/28/21; change antibiotic to cefepime, ordered CT abdomen pelvis to further investigate possible source for infection, ID following Subjective Date of service: 08/28/21 Principal diagnosis: Sepsis Objective - Constitutional Vitals: Vital Signs - 12hr 08/28/21 08/28/21 08/28/21 01:01 04:37 10:00 Temperature 97.9 F Pulse Rate 74 Respiratory 17 18 Rate Blood Pressure 134/76 O2 Sat by Pulse 100 99 100 Oximetry 08/28/21 11:24 Temperature 98.0 F Pulse Rate 74 Respiratory 22 Rate Blood Pressure 150/76 O2 Sat by Pulse 100 Oximetry - Labs CBC & Chem 7: 08/27/21 08:28 08/27/21 08:28 Labs: Abnormal lab results 08/27/21 08/27/21 08/28/21 Range/Units 15:53 21:22 11:23 POC Glucose 135 H 216 H 186 H (70-105) mg/dL
[2021-08-28] MEDS: CEFEPIME/NS 1 GM/100 ML 1 GM/100 ML BAG IV SCH (13:41)
--- NOTE | 2021-08-28 15:31 | Progress Note ---
Assessment and Plan 1.ESRD: Patient is on maintenance hemodialysis three times a week, TTS schedule. Last outpatient HD 08/22. Hemodialysis: 08/25, 08/26. 2. FEN: Hypokalemia, replete K, monitor. Monitor lytes and volume status. 3. Suspected PNA: CXR negative. Covid-19 test negative. On Abx. Follow cultures. 4. H/o CHF. 5. Microcytic Anemia, POA: Epogen with HD. Trend. 6. L LE wound: Wound care. Subjective: Patient was seen and examined at the bedside. Examination: General appearance: well-developed, appears stated age, no distress HEENT: atraumatic Neck: trachea midline Respiratory: diminished breath sounds Heart: S1S2, regular, no murmur Abdomen: soft, obese, bowel sounds heard, NT Integumentary: L leg dressing Neurologic: confused, non-focal Ext: R TMA Hemodialysis access: L arm AVF Subjective Date of service: 08/28/21 Principal diagnosis: Sepsis Objective - Vital Signs Vital signs: Vital Signs - 12hr 08/28/21 08/28/21 08/28/21 04:37 10:00 11:24 Temperature 97.9 F 98.0 F Pulse Rate 74 74 Respiratory 18 22 Rate Blood Pressure 134/76 150/76 O2 Sat by Pulse 99 100 100 Oximetry - Lab 08/28/21 15:21 08/28/21 15:21 Most recent lab results Calcium 8.3 mg/dL (8.4-10.2) L 08/27/21 08:28 Medications & Allergies - Medications Allergies/Adverse Reactions: Allergies Penicillins Allergy (Mild, Verified 08/25/21 04:36) Itching Home Medications: Home Medications Medication Instructions Recorded Confirmed Last Taken Type Apixaban [Eliquis] 5 mg PO BID 08/24/21 08/25/21 08/24/21 23:55 History Melatonin [Melatonin 3MG TAB] 3 mg PO QPM 08/24/21 08/24/21 Unknown History Sertraline [Zoloft] 25 mg PO QDAY 08/24/21 08/24/21 Unknown History Simvastatin 10 mg PO QPM 08/24/21 08/25/21 08/24/21 23:55 History amLODIPine [Norvasc] 10 mg PO DAILY 08/24/21 08/24/21 Unknown History carvediloL [Coreg] 25 mg PO BID 08/24/21 08/24/21 Unknown History hydrALAZINE [Apresoline TAB] 100 mg PO TID 08/24/21 08/24/21 Unknown History oxyCODONE [roxiCODONE] 5 mg PO Q8HR PRN 08/24/21 08/24/21 Unknown History sevelamer HCL [Renagel] 800 mg PO TIDWM 08/24/21 08/24/21 Unknown History Active Medications: Generic Name Dose Route Start Last Admin Trade Name Freq PRN Reason Stop Dose Admin Acetaminophen 650 mg 08/24/21 17:23 Acetaminophen 325 Mg Tab PO Q4H PRN Pain MILD(1-3)/Fever >100.5/QUINTEROS Albuterol 2.5 mg 08/24/21 17:23 Albuterol 2.5 Mg/3 Ml Nebu IH Q4HRT PRN Shortness Of Breath Apixaban 5 mg 08/24/21 22:00 08/28/21 09:02 Apixaban 5 Mg Tab PO 5 mg BID DIOMEDES Administration Heparin Sodium (Porcine) 3,000 unit 08/25/21 08:36 Heparin 10,000 Units/10 Ml Vial IV GABRIELA PRN hemodialysis Hydromorphone HCl 0.25 mg 08/24/21 17:27 Hydromorphone 1 Mg/1 Ml Inj IV Q24H PRN Pain, Moderate (4-6) Sodium Chloride 100 mls @ 999 mls/hr 08/25/21 08:36 Nacl 0.9% IV GABRIELA PRN Hypotension Cefepime HCl 1 gm in 100 mls @ 200 mls/hr 08/28/21 14:00 08/28/21 13:41 Cefepime/Ns 1 Gm/100 Ml IV 200 mls/hr Q24H DIOMEDES Administration Protocol Insulin Human Lispro 0 unit 08/25/21 01:15 08/28/21 11:30 Insulin Lispro 100 Unit/Ml SUB-Q 2 unit ACHS DIOMEDES Administration Protocol Ondansetron HCl 4 mg 08/24/21 17:23 Ondansetron 4 Mg/2 Ml Inj IV Q8H PRN Nausea And Vomiting Oxycodone/Acetaminophen 1 tab 08/24/21 17:23 Oxycodone /Acetaminophen 5-325mg Tab PO Q12H PRN Pain, Moderate (4-6) Pravastatin Sodium 20 mg 08/24/21 22:00 08/27/21 21:30 Pravastatin 20 Mg Tab PO 20 mg QHS DIOMEDES Administration Sertraline HCl 25 mg 08/25/21 10:00 08/28/21 09:02 Sertraline 25 Mg Tab PO 25 mg QDAY DIOMEDES Administration Sevelamer Carbonate 800 mg 08/25/21 08:00 08/28/21 12:00 Sevelamer Carbonate 800 Mg Tab PO 800 mg TIDWM DIOMEDES Administration Sodium Chloride 10 ml 08/24/21 22:00 08/28/21 09:02 Sodium Chloride 0.9% 10 Ml Flush Syringe IV 10 ml BID DIOMEDES Administration Sodium Chloride 10 ml 08/24/21 17:23 Sodium Chloride 0.9% 10 Ml Flush Syringe IV PRN PRN LINE FLUSH
[2021-08-28 16:10] LABS: Hematocrit 28.7 % (35.5-45.6); Hemoglobin 9.3 gm/dl (11.8-15.2); Mean Corpuscular HGB Conc 32 % (32-34); Mean Corpuscular Volume 78 fl (84-94); Platelet Count 264 K/mm3 (140-440); Red Cell Distribution Width 19.3 % (13.2-15.2)
[2021-08-28 16:21] LABS: Calcium 8.2 mg/dL (8.4-10.2)
--- NOTE | 2021-08-28 16:27 | Cat Scan Report ---
CT ABDOMEN AND PELVIS WITHOUT IV CONTRAST INDICATION: Possible underlying infection. COMPARISON: None available. TECHNIQUE: All CT scans at this facility use dose modulation, automated exposure control, iterative reconstructi on or weight based dosing, when appropriate, to reduce radiation dose to as low as reasonably achieva ble. FINDINGS: Lung Bases: No significant abnormality. Skeletal System: No acute abnormality. ABDOMEN: Liver: No significant abnormality. Gallbladder: No significant abnormality. Bile Ducts: No significant abnormality. Pancreas: No significant abnormality. Spleen: No significant abnormality. Adrenals: No significant abnormality. Right Kidney: No significant abnormality. Left Kidney: No significant abnormality. Upper GI tract: No significant abnormality. Lymph Nodes: No significant adenopathy. Aorta: No significant abnormality. Additional Findings: No significant abnormality. PELVIS: Colon: No acute abnormality. Minimal diverticulosis is noted. Urinary Bladder and Distal Ureters: There is mild diffuse bladder wall thickening. Appendix: No significant abnormality. Lymph Nodes: No significant adenopathy. Additional Findings: There is trace free fluid in the pelvis. IMPRESSION: 1. There is mild bladder wall thickening which may be due to partial decompression. It would be diff icult to exclude cystitis. 2. Incidental findings, as above. Signer Name: Pedrito Tipton MD Signed: 08/28/2021 4:23 PM Workstation Name: [id number]
[2021-08-29] MEDS: INSULIN LISPRO 100 UNIT/ML SUB-Q SCH ×4 (00:48→17:23)
[2021-08-29] MEDS: APIXABAN 5 MG TAB PO SCH ×2 (00:49→09:45)
[2021-08-29] MEDS: PRAVASTATIN 20 MG TAB PO SCH (00:49)
--- NOTE | 2021-08-29 08:17 | Progress Note ---
Assessment and Plan 1.ESRD: Patient is on maintenance hemodialysis three times a week, TTS schedule. Last outpatient HD 08/22. Hemodialysis: 08/25, 08/26. Patient refused HD today. 2. FEN: Hypokalemia, replete K, monitor. Monitor lytes and volume status. 3. Suspected PNA: CXR negative. Covid-19 test negative. On Abx. Follow cultures. 4. H/o CHF. 5. Microcytic Anemia, POA: Epogen with HD. Trend. 6. L LE wound: Wound care. Subjective: Patient was seen and examined at the bedside. Examination: General appearance: well-developed, appears stated age, no distress HEENT: atraumatic Neck: trachea midline Respiratory: diminished breath sounds Heart: S1S2, regular, no murmur Abdomen: soft, obese, bowel sounds heard, NT Integumentary: L leg dressing Neurologic: confused, non-focal Ext: R TMA Hemodialysis access: L arm AVF Subjective Date of service: 08/29/21 Principal diagnosis: Sepsis Objective - Vital Signs Vital signs: Vital Signs - 12hr 08/28/21 22:00 O2 Sat by Pulse 100 Oximetry - Lab 08/28/21 15:21 08/28/21 15:21 Most recent lab results Calcium 8.2 mg/dL (8.4-10.2) L 08/28/21 15:21 Medications & Allergies - Medications Allergies/Adverse Reactions: Allergies Penicillins Allergy (Mild, Verified 08/25/21 04:36) Itching Home Medications: Home Medications Medication Instructions Recorded Confirmed Last Taken Type Apixaban [Eliquis] 5 mg PO BID 08/24/21 08/25/21 08/24/21 23:55 History Melatonin [Melatonin 3MG TAB] 3 mg PO QPM 08/24/21 08/24/21 Unknown History Sertraline [Zoloft] 25 mg PO QDAY 08/24/21 08/24/21 Unknown History Simvastatin 10 mg PO QPM 08/24/21 08/25/21 08/24/21 23:55 History amLODIPine 10 mg PO DAILY 08/24/21 08/24/21 Unknown History sevelamer HCL [Renagel] 800 mg PO TIDWM 08/24/21 08/24/21 Unknown History Epoetin Singh-Epbx 10,000 Unit 10,000 unit SUB-Q GABRIELA PRN vial 08/29/21 Unknown Rx [Retacrit] Active Medications: Generic Name Dose Route Start Last Admin Trade Name Freq PRN Reason Stop Dose Admin Acetaminophen 650 mg 08/24/21 17:23 Acetaminophen 325 Mg Tab PO Q4H PRN Pain MILD(1-3)/Fever >100.5/QUINTEROS Albuterol 2.5 mg 08/24/21 17:23 Albuterol 2.5 Mg/3 Ml Nebu IH Q4HRT PRN Shortness Of Breath Apixaban 5 mg 08/24/21 22:00 08/29/21 00:49 Apixaban 5 Mg Tab PO 5 mg BID DIOMEDES Administration Heparin Sodium (Porcine) 3,000 unit 08/25/21 08:36 Heparin 10,000 Units/10 Ml Vial IV GABRIELA PRN hemodialysis Hydromorphone HCl 0.25 mg 08/24/21 17:27 Hydromorphone 1 Mg/1 Ml Inj IV Q24H PRN Pain, Moderate (4-6) Sodium Chloride 100 mls @ 999 mls/hr 08/25/21 08:36 Nacl 0.9% IV GABRIELA PRN Hypotension Cefepime HCl 1 gm in 100 mls @ 200 mls/hr 08/28/21 14:00 08/28/21 13:41 Cefepime/Ns 1 Gm/100 Ml IV 200 mls/hr Q24H DIOMEDES Administration Protocol Insulin Human Lispro 0 unit 08/25/21 01:15 08/29/21 00:48 Insulin Lispro 100 Unit/Ml SUB-Q Not Given ACHS [facility] Protocol Ondansetron HCl 4 mg 08/24/21 17:23 Ondansetron 4 Mg/2 Ml Inj IV Q8H PRN Nausea And Vomiting Oxycodone/Acetaminophen 1 tab 08/24/21 17:23 Oxycodone /Acetaminophen 5-325mg Tab PO Q12H PRN Pain, Moderate (4-6) Pravastatin Sodium 20 mg 08/24/21 22:00 08/29/21 00:49 Pravastatin 20 Mg Tab PO 20 mg QHS DIOMEDES Administration Sertraline HCl 25 mg 08/25/21 10:00 08/28/21 09:02 Sertraline 25 Mg Tab PO 25 mg QDAY DIOMEDES Administration Sevelamer Carbonate 800 mg 08/25/21 08:00 08/28/21 17:10 Sevelamer Carbonate 800 Mg Tab PO 800 mg TIDWM DIOMEDES Administration Sodium Chloride 10 ml 08/24/21 22:00 08/29/21 00:49 Sodium Chloride 0.9% 10 Ml Flush Syringe IV 10 ml BID DIOMEDES Administration Sodium Chloride 10 ml 08/24/21 17:23 Sodium Chloride 0.9% 10 Ml Flush Syringe IV PRN PRN LINE FLUSH
[2021-08-29] MEDS: SERTRALINE 25 MG TAB PO SCH (09:45)
[2021-08-29] MEDS: SEVELAMER CARBONATE 800 MG TAB PO SCH ×3 (09:45→17:23)
--- NOTE | 2021-08-29 11:09 | Progress Note ---
Assessment and Plan Cultures: Blood culture 08/24/2021 no growth so far COVID negative. A/P: 75-year-old man past medical history ESRD on HD, diabetes, vascular dementia, CHF admitted with decreased mentation #Leukocytosis: elevated on admission to 30, somewhat improved to 23 now. Unclear source, initially admitted for pneumonia, however CXR has been normal and remains on room air. Procalcitonin elevated, however as it is renally cleared can be falsely elevated in kidney failure. #ESRD on HD: renally dose medications. Blood cultures remain no growth #Acute encephalopathy: had missed dialysis, possible infectious cause? #Vascular dementia Recs: -Continue cefepime. -Follow up blood cultures -If continued improvement plan to discharge with cefepime with dialysis. -Trend white count. Thank you for the consult, we will continue to follow. Dina Duran MD [facility] ([facility]) O: [phone] F: [phone] Subjective Date of service: 08/29/21 Principal diagnosis: Sepsis Interval history: Afebrile, white count improved today to 17.8. Imaging personally reviewed: CT abdomen pelvis: Possible cystitis, no other acute abnormality. Objective - Exam Narrative Exam: Physical Exam: Constitutional: Awake, confused Head, Ears, Nose: Normocephalic, atraumatic. External ears, nose normal Eyes: Conjunctivae/corneas clear. No icterus. No ptosis. Neck: Supple, no meningeal signs Oral: dentition fair, no thrush Cardiovascular: S1, S2 normal. Respiratory: Good air entry, clear to auscultation bilaterally GI: Soft, non-tender; bowel sounds normal. No peritoneal signs. Musculoskeletal: No pedal edema, no cyanosis. Skin: No rash or abscess Hem/Lymphatic: No palpable cervical or supraclavicular nodes. No lymphangitis Psych: No agitation Neurological: Confused - Constitutional Vitals: Vital Signs Temp Pulse Resp BP Pulse Ox 98.8 F 67 18 156/74 100 08/28/21 17:09 08/28/21 17:09 08/28/21 17:09 08/28/21 17:08/28/21 22:00 Temperature -Last 24 Hours Temperature 98.8 F Temperature 98.0 F - Labs CBC & Chem 7: 08/28/21 15:21 08/28/21 15:21 Labs: Abnormal lab results 08/28/21 08/28/21 08/28/21 Range/Units 11:23 15:21 15:21 WBC 17.8 H (4.5-11.0) K/mm3 Hgb 9.3 L (11.8-15.2) gm/dl Hct 28.7 L (35.5-45.6) % MCV 78 L (84-94) fl MCH 25 L (28-32) pg RDW 19.3 H (13.2-15.2) % Sodium 136 L (137-145) mmol/L Chloride 94.3 L (98-107) mmol/L Carbon Dioxide 21 L (22-30) mmol/L BUN 49 H (9-20) mg/dL Creatinine 9.0 H (0.8-1.3) mg/dL Glucose 247 H (75-100) mg/dL POC Glucose 186 H (70-105) mg/dL Calcium 8.2 L (8.4-10.2) mg/dL 08/29/21 Range/Units 00:48 WBC (4.5-11.0) K/mm3 Hgb (11.8-15.2) gm/dl Hct (35.5-45.6) % MCV (84-94) fl MCH (28-32) pg RDW (13.2-15.2) % Sodium (137-145) mmol/L Chloride (98-107) mmol/L Carbon Dioxide (22-30) mmol/L BUN (9-20) mg/dL Creatinine (0.8-1.3) mg/dL Glucose (75-100) mg/dL POC Glucose 134 H (70-105) mg/dL Calcium (8.4-10.2) mg/dL
--- NOTE | 2021-08-29 13:16 | Discharge Summary ---
Providers - Providers Date of Admission: 08/24/21 17:23 Date of discharge: 08/29/21 Attending physician: IVONNE WALTER 08/24/21 17:23 Consult to Physician [CONS] Routine Comment: Consulting Provider: MADDIE AUGUSTIN Physician Instructions: Reason For Exam: esrd 08/25/21 13:17 Physical Therapy Evaluation and Treat [CONS] Stat Comment: Reason For Exam: eval and treat 08/25/21 13:18 Occupational Therapy Evaluate and Treat [CONS] Stat Comment: Reason For Exam: eval and treat 08/27/21 11:27 Consult to Physician [CONS] Routine Comment: Consulting Provider: TODD PATEL Physician Instructions: Reason For Exam: elevated white count Primary care physician: MANAGER SOLAR Hospitalization Condition: Stable Disposition: [facility] Final Discharge Diagnosis (Prints w/discharge instructions): --Sepsis with possible PNA. --ESRD on HD. --Acute encephalopathy. --Vascular dementia. --HTN Time spent for discharge: 34 minutes Core Measure Documentation - Palliative Care Palliative Care/ Comfort Measures: Not Applicable - Core Measures Any of the following diagnoses?: none Exam - Constitutional Vitals: Temp Pulse Resp BP Pulse Ox 98.8 F 67 18 156/74 99 08/28/21 17:09 08/28/21 17:09 08/28/21 17:09 08/28/21 17:09 08/29/21 10:00 Plan Activity: advance as tolerated Weight Bearing Status: Weight Bear as Tolerated Diet: renal Additional Instructions: cont cefepime with HD per ID. repeat CBC in 2 days Follow up with: CAROLYN LORENZ MD [Primary Care Provider] - 7 Days
[2021-08-29] MEDS: CEFEPIME/NS 1 GM/100 ML 1 GM/100 ML BAG IV SCH (14:57)
[2021-08-29 17:47] VITALS: BP 174/82
== END 2021-08-29 18:27 | DRG 871 ==
LOC: ED 12:43 → 3A 17:23
PROVIDERS: ADMIT Internal Medicine; ATTEND Internal Medicine
PROC: 5A1D70Z Performance of Urinary Filtration, Intermittent, Less than 6 Hours Per Day (ICD-10-PCS; principal; 2021-08-25)
PROC: 5A1D70Z Performance of Urinary Filtration, Intermittent, Less than 6 Hours Per Day (ICD-10-PCS; 2021-08-26)
DX: A41.9 Sepsis, unspecified organism (principal); J18.9 Pneumonia, unspecified organism; N18.6 End stage renal disease; G93.40 Encephalopathy, unspecified; I13.2 Hypertensive heart and chronic kidney disease with heart failure and with stage 5 chronic kidney disease, or end stage renal disease; E78.2 Mixed hyperlipidemia; F01.50 Vascular dementia, unspecified severity, without behavioral disturbance, psychotic disturbance, mood disturbance, and anxiety; I50.9 Heart failure, unspecified; D50.9 Iron deficiency anemia, unspecified; E87.6 Hypokalemia; Z20.822 Contact with and (suspected) exposure to COVID-19; E78.5 Hyperlipidemia, unspecified; E11.22 Type 2 diabetes mellitus with diabetic chronic kidney disease; Y95 Nosocomial condition; Z99.2 Dependence on renal dialysis; Z79.899 Other long term (current) drug therapy; Z88.0 Allergy status to penicillin; Z83.3 Family history of diabetes mellitus; Z82.49 Family history of ischemic heart disease and other diseases of the circulatory system
CPT/HCPCS: 36415; 71045; 74176; 80048; 80074; 80202; 82140; 82728; 82947; 82962; 83615; 84145; 85007; 85025; 85027; 85379; 86140; 86850; 86900; 86901; 87040; 94640; G0378; A9270-GY; J0692; J0885; J1815; J1956; J3246; J3370; J7040; U0003